=== PATIENT | female | born 1955 | race Caucasian/White ===

== ENCOUNTER 2018-12-08 22:58 | Emergency (ER) | payer MEDICARE, OTHER ==
[~2018-12-08] VITALS: Ht 167.6 cm; Wt 85.0 kg
[2018-12-08] MEDS ORDERED: LORazepam 2 mg/ml vial IV ONE (23:30)
[2018-12-08 23:45] LABS: BASOPHILS % (AUTO) 0.7 % (0-1); EOSINOPHILS % (AUTO) 0.6 % (0-6); HEMATOCRIT 43.5 % (35.0-45.0); LYMPHOCYTES # (AUTO) 1.6 X10'3 (1.1-4.8); LYMPHOCYTES % (AUTO) 23.2 % (21-51); MEAN CORPUSCULAR HEMOGLOBIN 31.6 PG (27.0-31.0); MEAN CORPUSCULAR HGB CONC 34.5 g/dL (33.0-36.5); MEAN CORPUSCULAR VOLUME 91.6 FL (78-98); MEAN PLATELET VOLUME 8.7 FL (7.4-10.4); MONOCYTES # (AUTO) 0.7 X10'3 (0-0.9); MONOCYTES % (AUTO) 10.3 % (2-12); NEUTROPHILS # (AUTO) 4.4 X10'3 (1.8-7.7); NEUTROPHILS % (AUTO) 65.2 % (42-75); PLATELET COUNT 276 X10'3 (140-440); RED BLOOD COUNT 4.76 X10'6 (4.20-5.60); RED CELL DISTRIBUTION WIDTH 13.4 % (11.5-14.5); WHITE BLOOD COUNT 6.8 X10'3 (4.5-11.0)
[2018-12-09 00:02] LABS: ALANINE AMINOTRANSFERASE 30 U/L (12-78); ALBUMIN 4.7 G/DL (3.4-5.0); ALBUMIN/GLOBULIN RATIO 1.5 (1.1-1.5); ALKALINE PHOSPHATASE 74 IU/L (46-116); ANION GAP 14 (8-16); ASPARTATE AMINO TRANSFERASE 20 U/L (10-37); BILIRUBIN,TOTAL 0.7 MG/DL (0.1-1.0); BLOOD UREA NITROGEN 7 MG/DL (7-18); BUN/CREATININE RATIO 6.7 (6.6-38.0); CALCIUM 8.6 MG/DL (8.5-10.1); CHLORIDE 91 MMOL/L (99-107); CREATININE 1.04 MG/DL (0.40-0.90); GLUCOSE 110 MG/DL (70-104); POTASSIUM 3.3 MMOL/L (3.5-5.1); SODIUM 129 MMOL/L (135-145); TOTAL CARBON DIOXIDE 24.5 MMOL/L (24-32); TOTAL PROTEIN 7.9 G/DL (6.4-8.2); eGFR 53 ML/MIN
[2018-12-09 00:15] LABS: PARTIAL THROMBOPLASTIN TIME 31 SECONDS (22-32)
[2018-12-09] MEDS ORDERED: normal saline 1000ML IV soln IVB ONE (00:15)
[2018-12-09] MEDS ORDERED: cloNIDine 0.1 mg tablet PO ONE (00:20)
[2018-12-09 01:41] VITALS: BP 160/73
== END 2018-12-09 01:45 | disposition home or self-care (01) ==
LOC: ER 22:59
DX: R07.89 Other chest pain (principal); F41.9 Anxiety disorder, unspecified; E87.1 Hypo-osmolality and hyponatremia; I10 Essential (primary) hypertension; K21.9 Gastro-esophageal reflux disease without esophagitis; E07.9 Disorder of thyroid, unspecified; G89.29 Other chronic pain; F32.9 Major depressive disorder, single episode, unspecified; Z90.710 Acquired absence of both cervix and uterus; Z88.1 Allergy status to other antibiotic agents; Z91.018 Allergy to other foods
CPT/HCPCS: 36415; 71045; 80053; 84484; 85025; 85610; 85730; 93005; 96374; 99284; J2060; J7030

== ENCOUNTER 2021-06-19 08:38 | Day surgery (SDC) | payer MEDICARE, OTHER ==
[~2021-06-19] VITALS: Ht 167.6 cm; Wt 87.4 kg
[2021-06-19] VITALS (9 sets, daily range): BP systolic 119–142; BP diastolic 58–95
[2021-06-19] MEDS ORDERED: normal saline 1000ml 1,000 ML IV PRN (09:05)
[2021-06-19 09:29] LABS: BASOPHILS % (AUTO) 0.5 % (0-1); EOSINOPHILS % (AUTO) 0.2 % (0-6); HEMATOCRIT 38.3 % (35.0-45.0); LYMPHOCYTES # (AUTO) 0.8 X10'3 (1.1-4.8); LYMPHOCYTES % (AUTO) 12.5 % (21-51); MEAN CORPUSCULAR HEMOGLOBIN 29.8 PG (27.0-31.0); MEAN CORPUSCULAR VOLUME 87.6 FL (78-98); MEAN PLATELET VOLUME 7.5 FL (7.4-10.4); MONOCYTES # (AUTO) 0.6 X10'3 (0-0.9); MONOCYTES % (AUTO) 9.6 % (2-12); NEUTROPHILS # (AUTO) 5.1 X10'3 (1.8-7.7); NEUTROPHILS % (AUTO) 77.2 % (42-75); PLATELET COUNT 293 X10'3 (140-440); RED BLOOD COUNT 4.37 X10'6 (4.20-5.60); RED CELL DISTRIBUTION WIDTH 14.5 % (11.5-14.5); WHITE BLOOD COUNT 6.6 X10'3 (4.5-11.0)
[2021-06-19] MEDS ORDERED: iohexol 300mg/ml 100ml inj. ONE ×2 (09:30→11:08)
[2021-06-19 09:37] LABS: ALBUMIN 3.8 G/DL (3.4-5.0); ANION GAP 8 (8-16); BLOOD UREA NITROGEN 10 MG/DL (7-18); BUN/CREATININE RATIO 14.9 (6.6-38.0); CHLORIDE 98 MMOL/L (99-107); CREATININE 0.67 MG/DL (0.40-0.90); GLUCOSE 101 MG/DL (70-104); POTASSIUM 3.9 MMOL/L (3.5-5.1); SODIUM 134 MMOL/L (135-145); TOTAL CARBON DIOXIDE 28.4 MMOL/L (24-32); eGFR 88 ML/MIN
[2021-06-19] MEDS ORDERED: LEVO50TA8 PO (09:46)
[2021-06-19] MEDS ORDERED: LANS30CA56 PO (09:46)
[2021-06-19] MEDS ORDERED: FLUT50DI (09:46)
[2021-06-19] MEDS ORDERED: VENL37.589 PO (09:46)
[2021-06-19] MEDS ORDERED: CARV-50 PO (09:46)
[2021-06-19] MEDS ORDERED: ZOLP-240 PO (09:46)
[2021-06-19] MEDS ORDERED: CYCL-1 PO (09:46)
[2021-06-19] MEDS ORDERED: heparin 1,000 UNITS/NS 500ml 500 ML ONE (09:50)
[2021-06-19] MEDS ORDERED: LIDOcaine 1% (10mg/ml) 2ml vial ONE (09:50)
[2021-06-19] MEDS ORDERED: midazolam 1 mg/ML 2ml injection ONE ×3 (09:50→11:03)
[2021-06-19] MEDS ORDERED: fentaNYL/PF 50MCG/1 ML 2ML syringe ONE ×3 (09:50→11:22)
[2021-06-19] MEDS ORDERED: NAPR-996 PO (09:51)
[2021-06-19] MEDS ORDERED: NALO25TA4 PO (09:51)
[2021-06-19] MEDS ORDERED: ONDA4TAB12 PO (09:51)
[2021-06-19] MEDS ORDERED: OLME20TA14 PO (09:51)
[2021-06-19] MEDS ORDERED: EPIN0.3P3 IM (09:51)
[2021-06-19] MEDS ORDERED: LIOT5TAB14 PO (09:51)
[2021-06-19] MEDS ORDERED: OXYC-138 PO (09:51)
[2021-06-19] MEDS ORDERED: heparin 1,000unit/ml 10ml vial 10 ML ONE (10:54)
[2021-06-19] MEDS ORDERED: aspirin 325mg tablet PO ONE (11:25)
[2021-06-19] MEDS ORDERED: CLOP75TA15 PO (12:39)
== END 2021-06-19 15:00 | disposition home or self-care (01) ==
LOC: SSTAY O 08:38
PROVIDERS: ATTEND Radiology Vascular & Interventional Radiology
DX: I70.211 Atherosclerosis of native arteries of extremities with intermittent claudication, right leg (principal); I10 Essential (primary) hypertension; Z79.899 Other long term (current) drug therapy; Z88.5 Allergy status to narcotic agent; Z88.2 Allergy status to sulfonamides
CPT/HCPCS: 36415; 37226; 75630; 80048; 85025; 85610; 99152; 99153; C1725; C1760; C1769; C1876; C1887; C1894; J1644; J2250; J3010; J3490; J7030; Q9967; A6213